=== PATIENT | male | born 1985 | race Two or more races ===

== ENCOUNTER 2018-04-17 12:59 | Emergency (ER) | payer OTHER ==
[2018-04-17 13:04] VITALS: BP 149/97; PULSE 93; TEMP 98; BMI 26.6
[2018-04-17] MEDS ORDERED: DIPHTH,PERTUSS(ACELL),TET 0.5 ML DISP.SYRIN IM ONE ×2 (13:44→13:51)
--- NOTE | 2018-04-17 13:49 | PDOC ---
History of Present Illness - General Chief Complaint: Injury Stated Complaint: RIGHT HAND LAC Time Seen by Provider: 04/17/18 13:21 History Source: Patient Exam Limitations: Clinical Condition - History of Present Illness Initial Comments: 04/17/18 13:45 Patient with no sig PMhx present with complains of laceration to palm of right hand from a vase when he was lifting the vase 2 days ago and broke cutting right hand. Patient report he put pressure on the wound 2 days ago and stopped bleeding but opened up again yesterday and was bleeding yesterday. report no bleeding today. Patient does not recall last tetanus vaccine. Patient report numbness sensation to right fingers Timing/Duration: other (2 days) Past History - Past Medical History Allergies/Adverse Reactions: Allergies Allergy/AdvReac Type Severity Reaction Status Date / Time No Known Allergies Allergy Verified 04/17/18 13:04 Home Medications: Ambulatory Orders Cephalexin Monohydrate [Keflex -] 500 mg PO BID 7 Days #14 capsule 04/17/18 Ibuprofen 800 mg PO Q8H PRN #20 tablet 04/17/18 COPD: No - Suicide/Smoking/Psychosocial Hx Smoking History: Never smoked Review of Systems - Review of Systems Able to Perform ROS?: Yes Is the patient limited Bhutanese proficient: No Constitutional: No: Weakness HEENTM: No: Symptoms Reported Respiratory: No: Symptoms reported Cardiac (ROS): No: Symptoms Reported Integumentary: Yes: See HPI, Other (laceration to palm of right hand) Neurological: Yes: Tingling (right fingers) *Physical Exam - Vital Signs Last Vital Signs Temp Pulse Resp BP Pulse Ox 98 F 93 H 18 149/97 99 04/17/18 13:01 04/17/18 13:01 04/17/18 13:01 04/17/18 13:01 04/17/18 13:01 - Physical Exam Comments: 04/17/18 13:53 GENERAL: Well developed, well nourished. Awake and alert. No acute distress. CARDIOVASCULAR: Regular rate and rhythm. No murmurs, rubs, or gallops. Distal pulses are 2+ and symmetric. PULMONARY: No evidence of respiratory distress. Lungs clear to auscultation bilaterally. No wheezing, rales or rhonchi. ABDOMINAL: Soft. Non-tender. Non-distended. No rebound or guarding. No organomegaly. Normoactive bowel sounds. EXTREMITIES: 3cm linear laceration with 1mm deep to palm of right hand over crease of right hand with no active bleeding. no foreign body in wound NEUROLOGICAL: Alert, awake, appropriate. normal sensory to right hand and fingers. no motor deficit to right hand. PSYCHIATRIC: Cooperative. Good eye contact. Appropriate mood General Appearance: Yes: Nourished, Appropriately Dressed. No: Apparent Distress Moderate Sedation - Procedure Monitoring Vital Signs: Procedure Monitoring Vital Signs Temperature 98 F 04/17/18 13:01 Pulse Rate 93 H 04/17/18 13:01 Respiratory Rate 18 04/17/18 13:01 Blood Pressure 149/97 04/17/18 13:01 O2 Sat by Pulse Oximetry (%) 99 04/17/18 13:01 Medical Decision Making - Medical Decision Making 04/17/18 14:57 Patient present with complaint of 2 day history of laceration to palm of right hand from a glass vase. Patient not sure of last tetanus vaccine. Exam shows a 3 cm linear laceration with 1 mm deep to palm of right hand over crease. X-ray of right hand shows tiny lucency which is only visible on AP and not visible on lateral view. Wound copiously irrigated with normal saline. Bacitracin apply to wound. Wound left open due to already been 2 days. steri- strips applied to wound and hand wrapped with stretch gauze. Spoke to as surgeon Dr. Martinez who agrees to see patient in 2 days for follow-up. Patient placed on Keflex antibiotics with hand surgeon follow-up. Tetanus vaccine given today *DC/Admit/Observation/Transfer Diagnosis at time of Disposition: Laceration of right hand without foreign body Qualifiers: Encounter type: initial encounter Qualified Code(s): S61.411A - Laceration without foreign body of right hand, initial encounter - Discharge Dispostion Disposition: HOME Condition at time of disposition: Stable Decision to Admit order: No - Prescriptions Prescriptions: Cephalexin Monohydrate [Keflex -] 500 mg PO BID 7 Days #14 capsule Ibuprofen 800 mg PO Q8H PRN #20 tablet PRN Reason: pain - Referrals Referrals: Jeremi Martinez MD [Staff Physician] - - Patient Instructions Printed Discharge Instructions: DI for Open Laceration Additional Instructions: Called Dr. Martinez wound care tomorrow on [phone] for follow-up appointment with him. keep wound clean and take medications as prescribed. apply neosporin to wound twice/ day until follow-up - Post Discharge Activity
== END 2018-04-17 14:55 | disposition home or self-care (01) ==
LOC: JERFT 12:59
PROC: 3E0234Z Introduction of Serum, Toxoid and Vaccine into Muscle, Percutaneous Approach (ICD-10-PCS; principal; 2018-04-17)
DX: S61.411A Laceration without foreign body of right hand, initial encounter (principal); W25.XXXA Contact with sharp glass, initial encounter; Y93.89 Activity, other specified; Y92.038 Other place in apartment as the place of occurrence of the external cause; Y99.8 Other external cause status
CPT/HCPCS: 73130-TC-RT-FY; 90715; 99281-25